=== PATIENT | male | born 1985 | race Caucasian/White ===

== ENCOUNTER 2017-09-23 23:12 | Emergency (ER) | payer OTHER ==
[~2017-09-23] VITALS: Ht 193 cm; Wt 97.8 kg
[~2017-09-23 23:12] MED LIST: ACID CONTROL150 MG PO; NAPROSYN500 MG PO; no home med
[2017-09-24] MEDS ORDERED: MOTRIN800 MG PO (00:35)
[2017-09-24 00:50] VITALS: BP 129/83
== END 2017-09-24 00:51 | disposition home or self-care (01) ==
LOC: EME 23:12
DX: M25.512 Pain in left shoulder (principal); F17.200 Nicotine dependence, unspecified, uncomplicated
CPT/HCPCS: 73030; 99281; 99284